=== PATIENT | female | born 1970 | race Caucasian/White ===

== ENCOUNTER 2021-02-09 09:57 | Day surgery (SDC) | payer OTHER ==
[~2021-02-09 09:57] MED LIST: MARIJUANA; MIRTAZAPINE45 M1 PO
[2021-02-09 13:05] VITALS: BP 146/70
--- NOTE | 2021-02-15 15:58 | NUR ---
PER PHYSICIAN, NOTIFIED PATIENT OF COLONOSCOPY AND BIOPSY RESULTS. RECOMMENDED REPEAT PROCEDURE X 5 YEARS. PATIENT AGREED WITH INFORMATION GIVEN. REPORT AND RESULTS FORWARDED TO PRIMARY CARE FOR CONTINUITY OF CARE. PT VERBALIZED NO CONCERNS AT TIME OF CALL.
== END 2021-02-09 12:12 | disposition home or self-care (01) | DRG 951 ==
LOC: ENDO 09:57
PROVIDERS: ATTEND Surgery
PROC: 0DBH8ZX Excision of Cecum, Via Natural or Artificial Opening Endoscopic, Diagnostic (ICD-10-PCS; principal; 2021-02-09)
DX: Z12.11 Encounter for screening for malignant neoplasm of colon (principal); Q43.9 Congenital malformation of intestine, unspecified; D12.0 Benign neoplasm of cecum